=== PATIENT | male | born 1955 | race Caucasian/White ===

== ENCOUNTER 2018-11-24 14:34 | Inpatient (IN) | payer MEDICAID ==
[~2018-11-24] VITALS: Ht 172.7 cm; Wt 72.2 kg
[2018-11-24] MEDS ORDERED: SODIUM CHLORIDE 0.9% 1,000 ML IV ONE (15:11)
[2018-11-24 15:54] LABS: Albumin 3.3 g/dL (3.4-5.0); Calcium 7.8 mg/dL (8.5-10.1); Magnesium 2.4 mg/dL (1.6-2.6); Potassium 3.3 mmol/L (3.5-5.1)
[2018-11-24 16:00] LABS: BUN/Creatinine Ratio 21.8; Bilirubin, Total 0.5 mg/dL (0.2-1.0); Total Protein 6.8 g/dL (6.4-8.2)
[2018-11-24 16:09] LABS: Basophils # (auto) 0 uL; Eosinophils # (auto) 0.1 uL; Monocytes # (auto) 0.2 uL; Nucleated Red Blood Cells % 0.4 %
[2018-11-24 16:14] LABS: INR 1.08 (0.9-1.15); Partial Thromboplastin Time 23.4 sec (23.78-33.04); Prothrombin Time 11.5 sec (9.27-12.13)
[2018-11-24 16:15] LABS: Basophils % (auto) 0.5 % (0.0-2.0); Eosinophils % (auto) 2.4 % (0.0-7.0); Hematocrit 10.6 % (41.0-53.0); Lymphocytes # (auto) 1.5 uL; Mean Corpuscular Hemoglobin 31.3 pg (28.0-32.0); Mean Corpuscular Hgb Conc. 33.1 g/dL (32.0-36.0); Mean Corpuscular Volume 94.6 fL (80.0-100.0); Neutrophils # (auto) 1.2 uL; Neutrophils % (auto) 41.1 % (37.0-80.0); Platelet Count (auto) 89 10^3/uL (140-450); Red Blood Cells 1.12 10^6/uL (4.5-5.90)
[2018-11-24 16:20] LABS: Hemoglobin 3.5 g/dL (13.5-17.5); Red Cell Distribution Width 22.2 % (11.8-14.3)
[2018-11-24 17:38] LABS: Urine Bacteria NONE SEEN /hpf (None Seen); Urine Blood Negative /uL (Negative); Urine Specific Gravity 1.008 (1.001-1.035); Urine WBC <1 /hpf (0 - 3)
[2018-11-24] MEDS ORDERED: cefTRIAXone 1GM/50ML D5W 50 ML IV ONE (18:00)
[2018-11-24 18:05] LABS: Amphetamine Screen, Urine POSITIVE (NEGATIVE); Barbiturate Scree,Urine NEGATIVE (NEGATIVE); Benzodiazephine Screen, Urine NEGATIVE (NEGATIVE); Cannabinoid Screen, Urine NEGATIVE (NEGATIVE); Cocaine Screen, Urine NEGATIVE (NEGATIVE); Opiate Scree,Urine NEGATIVE (NEGATIVE); Phencyclidine Screen, Urine NEGATIVE (NEGATIVE)
[2018-11-24] MEDS ORDERED: LEVOFLOXACIN 500MG 100 ML IV ONE (20:45)
[2018-11-24] MEDS ORDERED: MORPHINE SULF INJ 2 MG/ML SYRINGE 1ML IV PRN (20:45)
[2018-11-24] MEDS ORDERED: NITROGLYCERIN 0.4 MG SL TAB SL PRN (20:45)
[2018-11-24] MEDS ORDERED: DEXTROSE (50%) 50ML SYRG IV PRN (20:45)
[2018-11-24] MEDS ORDERED: ONDANSETRON HCL 4 MG/2 ML VIAL IV PRN (20:45)
[2018-11-24] MEDS: CARVEDILOL 3.125 MG TAB PO SCH (21:18)
[2018-11-24] MEDS ORDERED: POTASSIUM CHL 20 Meq TABLET PO ONE (23:00)
[2018-11-25] MEDS: InsuLIN REG 1unit/0.01ml Soln (100units/ml) SC SCH ×5 (06:00→23:59)
[2018-11-25] MEDS: ACCU-CHEK COMFORT CURVE STRIP VI SCH ×5 (06:28→23:59)
[2018-11-25 08:41] LABS: Basophils # (auto) 0 uL; Eosinophils # (auto) 0.1 uL; Nucleated Red Blood Cells % 0.1 %; White Blood Cell 2.3 10^3/uL (4.4-10.8)
[2018-11-25 08:43] LABS: Basophils % (auto) 0.4 % (0.0-2.0); Eosinophils % (auto) 3.2 % (0.0-7.0); Hematocrit 15.2 % (41.0-53.0); Lymphocytes % (auto) 45.8 % (10.0-50.0); Mean Corpuscular Hemoglobin 31.5 pg (28.0-32.0); Mean Corpuscular Hgb Conc. 34.1 g/dL (32.0-36.0); Mean Corpuscular Volume 92.4 fL (80.0-100.0); Monocytes # (auto) 0.2 uL; Neutrophils % (auto) 43.6 % (37.0-80.0); Platelet Count (auto) 59 10^3/uL (140-450); Red Blood Cells 1.64 10^6/uL (4.5-5.90); Red Cell Distribution Width 17.9 % (11.8-14.3)
[2018-11-25 08:49] LABS: Hemoglobin 5.2 g/dL (13.5-17.5)
[2018-11-25] MEDS ORDERED: IOHEXOL 300 MG/ML 100ML BOTTLE IJ ONE (08:58)
[2018-11-25 09:44] VITALS: BP 155/99
[2018-11-25] MEDS: LISINOPRIL 10 MG TAB PO SCH (09:57)
[2018-11-25] MEDS: CARVEDILOL 3.125 MG TAB PO SCH ×2 (09:57→22:32)
[2018-11-25] MEDS: PANTOPRAZOLE 40 MG TAB PO SCH (09:58)
[2018-11-25] MEDS: LEVOFLOXACIN 500MG 100 ML IV SCH (09:59)
[2018-11-25 10:00] VITALS: BP 154/66
[2018-11-25] MEDS: LORazepam 2MG/ML-1ML VIAL IV PRN ×2 (10:39→20:21)
[2018-11-25 11:12] VITALS: BP 162/92
[2018-11-25 14:31] VITALS: BP 150/99
[2018-11-25] MEDS: methylPREDNISolone SOD SUCC 125 MG/2 ML VL IV SCH ×2 (14:31→22:32)
[2018-11-25 14:41] LABS: BUN/Creatinine Ratio 24.1; Calcium 7.1 mg/dL (8.5-10.1)
[2018-11-25 14:43] LABS: Bilirubin, Total 0.7 mg/dL (0.2-1.0); Total Protein 6.3 g/dL (6.4-8.2)
[2018-11-25 14:47] LABS: Potassium 4.7 mmol/L (3.5-5.1)
[2018-11-25] MEDS ORDERED: ALBUTEROL SULF 2.5 MG/0.5ML(0.5%) NEB SOLN NEB PRN (15:15)
[2018-11-25] MEDS ORDERED: IPRATROPIUM BROM 0.5 MG/2.5ML INH SOL NEB PRN (15:15)
[2018-11-25 15:47] VITALS: BP 150/99
[2018-11-25 16:08] LABS: Hepatitis B Surface Antibody Positive
[2018-11-25 16:47] LABS: Hepatitis A Total Antibody Positive
[2018-11-25 16:58] LABS: Hematocrit 23.4 % (41.0-53.0); Hemoglobin 8.1 g/dL (13.5-17.5)
[2018-11-25 17:11] LABS: Hepatitis B Core Total AB Positive
[2018-11-25 17:12] LABS: Hepatitis B Surface Antigen Positive (Negative)
[2018-11-25 17:14] LABS: Hepatitis C Antibody Positive (Negative)
[2018-11-26] VITALS (7 sets, daily range): BP systolic 112–135; BP diastolic 68–84
[2018-11-26] MEDS: ACCU-CHEK COMFORT CURVE STRIP VI SCH ×4 (05:46→21:46)
[2018-11-26] MEDS: methylPREDNISolone SOD SUCC 125 MG/2 ML VL IV SCH ×3 (05:47→21:41)
[2018-11-26 06:26] LABS: Basophils # (auto) 0 uL; Basophils % (auto) 0.1 % (0.0-2.0); Eosinophils # (auto) 0 uL; Eosinophils % (auto) 0.1 % (0.0-7.0); Hematocrit 26.7 % (41.0-53.0); Hemoglobin 9.5 g/dL (13.5-17.5); Lymphocytes % (auto) 27.2 % (10.0-50.0); Mean Corpuscular Hemoglobin 31.9 pg (28.0-32.0); Mean Corpuscular Hgb Conc. 35.6 g/dL (32.0-36.0); Mean Corpuscular Volume 89.7 fL (80.0-100.0); Monocytes # (auto) 0.1 uL; Monocytes % (auto) 1.6 % (0.0-12.0); Neutrophils # (auto) 2.6 uL; Nucleated Red Blood Cells % 0.1 %; Platelet Count (auto) 80 10^3/uL (140-450); Red Blood Cells 2.98 10^6/uL (4.5-5.90); Red Cell Distribution Width 16.3 % (11.8-14.3); White Blood Cell 3.7 10^3/uL (4.4-10.8)
[2018-11-26] MEDS: InsuLIN REG 1unit/0.01ml Soln (100units/ml) SC SCH ×4 (06:41→21:57)
[2018-11-26 06:42] LABS: Potassium 4.1 mmol/L (3.5-5.1)
[2018-11-26 06:45] LABS: Albumin 3.2 g/dL (3.4-5.0); Calcium 7.7 mg/dL (8.5-10.1); Magnesium 2.4 mg/dL (1.6-2.6)
[2018-11-26 06:48] LABS: BUN/Creatinine Ratio 23.3
[2018-11-26 06:50] LABS: % Iron Saturation 96.7 % (20-55); Cholesterol 87 mg/dL (< 200); Triglycerides 50 mg/dL (< 150)
[2018-11-26 06:51] LABS: Bilirubin, Total 1.7 mg/dL (0.2-1.0); Total Protein 7.1 g/dL (6.4-8.2)
[2018-11-26 06:52] LABS: HDL Cholesterol 37 mg/dL (40-59); LDL Cholesterol 53 mg/dL (< 100)
[2018-11-26 09:16] LABS: Folate (Folic Acid) 6.36 ng/mL (5.38-24)
[2018-11-26] MEDS: NICOTINE 21MG/24 HR TOPICAL PATCH TD SCH (10:14)
[2018-11-26] MEDS: LEVOFLOXACIN 500MG 100 ML IV SCH (10:14)
[2018-11-26] MEDS: ACETAMINOPHEN 325 MG TAB PO PRN (10:15)
[2018-11-26] MEDS: LISINOPRIL 10 MG TAB PO SCH (10:15)
[2018-11-26] MEDS: PANTOPRAZOLE 40 MG TAB PO SCH (10:16)
[2018-11-26] MEDS: CARVEDILOL 3.125 MG TAB PO SCH ×2 (10:16→21:41)
[2018-11-26] MEDS ORDERED: DEXTROSE (50%) 50ML SYRG IV PRN (11:15)
[2018-11-26] MEDS: LORazepam 2MG/ML-1ML VIAL IV PRN (17:30)
[2018-11-26] MEDS ORDERED: chlordiazePOXIDE HCL 25 MG CAP PO PRN (20:45)
[2018-11-26] MEDS: TEMAZEPAM 15 MG CAP PO PRN (21:42)
[2018-11-27 05:15] VITALS: BP 117/69
[2018-11-27] MEDS: methylPREDNISolone SOD SUCC 125 MG/2 ML VL IV SCH ×3 (05:15→21:43)
[2018-11-27] MEDS: LORazepam 2MG/ML-1ML VIAL IV PRN (05:15)
[2018-11-27] MEDS: ACCU-CHEK COMFORT CURVE STRIP VI SCH ×4 (05:45→21:42)
[2018-11-27 06:03] LABS: Basophils # (auto) 0 uL; Basophils % (auto) 0.1 % (0.0-2.0); Eosinophils # (auto) 0 uL; Hematocrit 24.3 % (41.0-53.0); Hemoglobin 8.6 g/dL (13.5-17.5); Lymphocytes # (auto) 1.2 uL; Lymphocytes % (auto) 19.5 % (10.0-50.0); Mean Corpuscular Hemoglobin 31.8 pg (28.0-32.0); Mean Corpuscular Hgb Conc. 35.2 g/dL (32.0-36.0); Mean Corpuscular Volume 90.1 fL (80.0-100.0); Monocytes # (auto) 0.1 uL; Monocytes % (auto) 1.8 % (0.0-12.0); Neutrophils # (auto) 4.7 uL; Neutrophils % (auto) 78.6 % (37.0-80.0); Platelet Count (auto) 79 10^3/uL (140-450); Red Cell Distribution Width 16.6 % (11.8-14.3); White Blood Cell 5.9 10^3/uL (4.4-10.8)
[2018-11-27] MEDS: InsuLIN REG 1unit/0.01ml Soln (100units/ml) SC SCH ×4 (06:54→21:44)
[2018-11-27 09:47] VITALS: BP 97/54
[2018-11-27] MEDS: LISINOPRIL 10 MG TAB PO SCH (10:00)
[2018-11-27] MEDS: CARVEDILOL 3.125 MG TAB PO SCH ×2 (10:00→21:43)
[2018-11-27] MEDS: LEVOFLOXACIN 500MG 100 ML IV SCH (11:36)
[2018-11-27] MEDS: PANTOPRAZOLE 40 MG TAB PO SCH (11:37)
[2018-11-27] MEDS: NICOTINE 21MG/24 HR TOPICAL PATCH TD SCH (11:38)
[2018-11-27 13:00] VITALS: BP 130/83
[2018-11-27 14:16] LABS: Potassium 4.2 mmol/L (3.5-5.1)
[2018-11-27 14:19] LABS: Albumin 2.9 g/dL (3.4-5.0); Calcium 7.6 mg/dL (8.5-10.1)
[2018-11-27 14:24] LABS: BUN/Creatinine Ratio 29.5; Bilirubin, Total 0.5 mg/dL (0.2-1.0); Total Protein 6.5 g/dL (6.4-8.2)
[2018-11-27 17:00] VITALS: BP 103/73
[2018-11-27] MEDS: MAGNESIUM SULFATE 1GM/100ML 100 ML IV SCH ×2 (17:00→18:09)
[2018-11-27] MEDS: TEMAZEPAM 15 MG CAP PO PRN (21:43)
[2018-11-27 22:00] VITALS: BP 127/88
[2018-11-28 05:48] VITALS: BP 117/81
[2018-11-28] MEDS: methylPREDNISolone SOD SUCC 125 MG/2 ML VL IV SCH ×3 (06:12→21:55)
[2018-11-28] MEDS: InsuLIN REG 1unit/0.01ml Soln (100units/ml) SC SCH ×4 (06:12→22:16)
[2018-11-28] MEDS: ACCU-CHEK COMFORT CURVE STRIP VI SCH ×4 (06:12→21:56)
[2018-11-28] MEDS: LEVOFLOXACIN 500MG 100 ML IV SCH (09:10)
[2018-11-28] MEDS: PANTOPRAZOLE 40 MG TAB PO SCH (09:11)
[2018-11-28] MEDS: CARVEDILOL 3.125 MG TAB PO SCH ×2 (09:11→21:56)
[2018-11-28] MEDS: LISINOPRIL 10 MG TAB PO SCH (09:12)
[2018-11-28] MEDS: NICOTINE 21MG/24 HR TOPICAL PATCH TD SCH ×2 (09:16→09:17)
[2018-11-28] MEDS: ACETAMINOPHEN 325 MG TAB PO PRN (14:17)
[2018-11-28 16:39] VITALS: BP 117/81
[2018-11-28 17:00] VITALS: BP 126/79
[2018-11-28 21:30] VITALS: BP 129/66
[2018-11-28] MEDS: TEMAZEPAM 15 MG CAP PO PRN (21:57)
[2018-11-29 05:00] VITALS: BP 121/68
[2018-11-29] MEDS: ACCU-CHEK COMFORT CURVE STRIP VI SCH ×2 (05:56→11:00)
[2018-11-29] MEDS: methylPREDNISolone SOD SUCC 125 MG/2 ML VL IV SCH ×2 (05:56→14:52)
[2018-11-29] MEDS: InsuLIN REG 1unit/0.01ml Soln (100units/ml) SC SCH ×2 (05:57→11:00)
[2018-11-29 06:09] LABS: Basophils # (auto) 0 uL; Basophils % (auto) 0.1 % (0.0-2.0); Eosinophils # (auto) 0 uL; Hematocrit 23.8 % (41.0-53.0); Hemoglobin 8.3 g/dL (13.5-17.5); Lymphocytes # (auto) 1.1 uL; Lymphocytes % (auto) 19.2 % (10.0-50.0); Mean Corpuscular Hemoglobin 31.6 pg (28.0-32.0); Mean Corpuscular Hgb Conc. 34.7 g/dL (32.0-36.0); Mean Corpuscular Volume 91.2 fL (80.0-100.0); Monocytes # (auto) 0.2 uL; Monocytes % (auto) 2.7 % (0.0-12.0); Neutrophils # (auto) 4.5 uL; Platelet Count (auto) 81 10^3/uL (140-450); Red Blood Cells 2.61 10^6/uL (4.5-5.90); Red Cell Distribution Width 16.7 % (11.8-14.3); White Blood Cell 5.8 10^3/uL (4.4-10.8)
[2018-11-29 06:25] LABS: Albumin 2.9 g/dL (3.4-5.0); Calcium 7.7 mg/dL (8.5-10.1); Potassium 4.6 mmol/L (3.5-5.1)
[2018-11-29 06:28] LABS: BUN/Creatinine Ratio 19.7
[2018-11-29 06:31] LABS: Bilirubin, Total 0.4 mg/dL (0.2-1.0); Total Protein 6.3 g/dL (6.4-8.2)
[2018-11-29 08:28] VITALS: BP 122/76
[2018-11-29] MEDS: LEVOFLOXACIN 500MG 100 ML IV SCH (09:02)
[2018-11-29] MEDS: CARVEDILOL 3.125 MG TAB PO SCH (09:03)
[2018-11-29] MEDS: PANTOPRAZOLE 40 MG TAB PO SCH (09:03)
[2018-11-29] MEDS: LISINOPRIL 10 MG TAB PO SCH (09:03)
[2018-11-29] MEDS: NICOTINE 21MG/24 HR TOPICAL PATCH TD SCH (09:05)
[2018-11-29] MEDS: LORazepam 2MG/ML-1ML VIAL IV PRN (10:29)
[2018-11-29] MEDS ORDERED: DEXAMETHASONE IV SCH (13:00)
[2018-11-29] MEDS ORDERED: SODIUM CHL 0.9% IV SCH ×2 (13:00→14:00)
[2018-11-29] MEDS ORDERED: ONDANSETRON HCL 16 MG in SODIUM CHL 0.9% 50 ML IV SCH (13:00)
[2018-11-29] MEDS ORDERED: BENDAMUSTINE HCL IV SCH (14:00)
== END 2018-11-29 18:09 | disposition left against medical advice (07) | DRG 660 ==
LOC: ER 14:42 → TELE 20:42 → TELE-WESTW 11-25 23:46
PROVIDERS: ADMIT Nurse Practitioner; ATTEND Internal Medicine
PROC: 30233N1 Transfusion of Nonautologous Red Blood Cells into Peripheral Vein, Percutaneous Approach (ICD-10-PCS; principal; 2018-11-24)
DX: D61.818 Other pancytopenia (principal); I21.A1 Myocardial infarction type 2; J96.00 Acute respiratory failure, unspecified whether with hypoxia or hypercapnia; J69.0 Pneumonitis due to inhalation of food and vomit; E44.1 Mild protein-calorie malnutrition; I27.20 Pulmonary hypertension, unspecified; C91.10 Chronic lymphocytic leukemia of B-cell type not having achieved remission; K70.9 Alcoholic liver disease, unspecified; I42.0 Dilated cardiomyopathy; I11.0 Hypertensive heart disease with heart failure; I50.9 Heart failure, unspecified; J44.0 Chronic obstructive pulmonary disease with (acute) lower respiratory infection; E87.6 Hypokalemia; J44.1 Chronic obstructive pulmonary disease with (acute) exacerbation; R00.0 Tachycardia, unspecified; E11.9 Type 2 diabetes mellitus without complications; B18.1 Chronic viral hepatitis B without delta-agent; B18.2 Chronic viral hepatitis C; F17.210 Nicotine dependence, cigarettes, uncomplicated; F15.10 Other stimulant abuse, uncomplicated; F12.90 Cannabis use, unspecified, uncomplicated; K57.30 Diverticulosis of large intestine without perforation or abscess without bleeding; R00.1 Bradycardia, unspecified; Z91.19 Patient's noncompliance with other medical treatment and regimen; Z68.24 Body mass index [BMI] 24.0-24.9, adult; Z92.21 Personal history of antineoplastic chemotherapy
CPT/HCPCS: 36415; 36430; 71046; 71260; 74177; 80053; 80061; 80307; 81001; 82607; 82728; 82746; 82962; 83010; 83036; 83540; 83550; 83615; 83735; 83880; 84443; 84484; 85014; 85018; 85025; 85045; 85379; 85610; 85730; 86704; 86706; 86708; 86803; 86850; 86870; 86880; 86900; 86901; 86902; 86922; 87040; 87340; 93005; 93306; 96365; 96367; 99291; A6257; G0378; J0696; J1100; J1815; J1956; J2405; J9034

== ENCOUNTER 2019-04-16 16:38 | Emergency (ER) | payer MEDICAID ==
[~2019-04-16] VITALS: Ht 167.6 cm; Wt 68.0 kg
[~2019-04-16 16:38] MED LIST: MAGN400T21 PO; MET25T PO; PANT40TA2 PO; PRE1T PO
[2019-04-16 16:53] VITALS: BP 160/89
[2019-04-16] MEDS ORDERED: cefTRIAXone 1GM/50ML D5W 50 ML IV ONE (18:15)
== END 2019-04-16 18:56 | disposition home or self-care (01) ==
LOC: ER 16:48
DX: L02.512 Cutaneous abscess of left hand (principal); M86.9 Osteomyelitis, unspecified; J44.9 Chronic obstructive pulmonary disease, unspecified; I10 Essential (primary) hypertension; F17.210 Nicotine dependence, cigarettes, uncomplicated; F12.90 Cannabis use, unspecified, uncomplicated; F15.90 Other stimulant use, unspecified, uncomplicated; Z79.899 Other long term (current) drug therapy
CPT/HCPCS: 26010; 73140; 96365; 99283; J0696

== ENCOUNTER 2019-04-18 13:23 | Emergency (ER) | payer MEDICAID ==
[~2019-04-18] VITALS: Ht 170.2 cm; Wt 65.8 kg
[2019-04-18 14:00] VITALS: BP 102/75
[2019-04-18] MEDS ORDERED: NEOMYCIN-BACITRACIN-POLYM UNITDOSE PKG TOP OINT TOP ONE ×2 (16:06→16:15)
[2019-04-18] MEDS ORDERED: BACITRACIN INJ 50000 UNIT VIAL TOP ONE (16:15)
== END 2019-04-18 16:09 | disposition home or self-care (01) ==
LOC: ER 13:28
DX: L03.012 Cellulitis of left finger (principal); J44.9 Chronic obstructive pulmonary disease, unspecified; I10 Essential (primary) hypertension; F17.210 Nicotine dependence, cigarettes, uncomplicated; F12.90 Cannabis use, unspecified, uncomplicated; F15.90 Other stimulant use, unspecified, uncomplicated; Z79.899 Other long term (current) drug therapy

== ENCOUNTER 2021-01-02 05:59 | Inpatient (IN) | payer MEDICARE ==
[~2021-01-02] VITALS: Ht 170.2 cm; Wt 67.1 kg
[~2021-01-02 05:59] MED LIST changes: +ENAL5TAB10 PO; -MAGN400T21 PO; -PANT40TA2 PO; -PRE1T PO
[2021-01-02 06:40] LABS: Hemoglobin 7.6 g/dL (13.5-17.5); White Blood Cell 6.5 10^3/uL (4.4-10.8)
[2021-01-02 06:43] LABS: Hematocrit 22.5 % (41.0-53.0); Mean Corpuscular Hemoglobin 30.1 pg (28.0-32.0); Mean Corpuscular Hgb Conc. 33.8 g/dL (32.0-36.0); Mean Corpuscular Volume 88.8 fL (80.0-100.0); Red Blood Cells 2.53 10^6/uL (4.5-5.90)
[2021-01-02 06:48] LABS: Red Cell Distribution Width 20.5 % (11.8-14.3)
[2021-01-02 06:49] LABS: Basophils % (manual) 0 (0.0-2.0); Blast Cells 0; Metamyelocytes % 0; Monocytes % (manual) 0 (0-12); Promyelocytes % 0; Reactive Lymphocytes 0
[2021-01-02 06:51] LABS: INR 1.04 (0.9-1.15); Partial Thromboplastin Time 24.3 sec (23.0-31.2)
[2021-01-02 06:55] LABS: BUN/Creatinine Ratio 12.6; Calcium 8.4 mg/dL (8.5-10.1)
[2021-01-02 06:59] LABS: Bilirubin, Total 0.9 mg/dL (0.2-1.0); Total Protein 6.8 g/dL (6.4-8.2)
[2021-01-02] MEDS ORDERED: SODIUM CHLORIDE 0.9% 1,000 ML IV ONE (07:15)
[2021-01-02 07:44] LABS: Band Neutrophils % (manual) 2; Eosinophils % (manual) 3 (0-7); Lymphocytes % (manual) 57 (10.0-50.0); Myelocytes % 3
[2021-01-02 08:27] LABS: Urine Bacteria FEW /hpf (None Seen); Urine Blood Negative /uL (Negative); Urine Specific Gravity 1.006 (1.001-1.035); Urine WBC 3 /hpf (0 - 3)
[2021-01-02 08:40] LABS: Amphetamine Screen, Urine POSITIVE (NEGATIVE); Barbiturate Scree,Urine NEGATIVE (NEGATIVE); Benzodiazephine Screen, Urine NEGATIVE (NEGATIVE); Cannabinoid Screen, Urine NEGATIVE (NEGATIVE); Cocaine Screen, Urine NEGATIVE (NEGATIVE); Opiate Scree,Urine NEGATIVE (NEGATIVE)
[2021-01-02 08:47] LABS: Phencyclidine Screen, Urine NEGATIVE (NEGATIVE)
[2021-01-02] MEDS ORDERED: SPIRONOLACTONE 25 MG TAB PO ONE (09:45)
[2021-01-02] MEDS ORDERED: FUROSEMIDE 40 MG/4 ML VIAL IV ONE (09:45)
[2021-01-02] MEDS ORDERED: POTASSIUM CHL 10 Meq TABLET PO ONE (11:00)
[2021-01-02] MEDS ORDERED: ONDANSETRON HCL 4 MG/2 ML VIAL IV PRN (11:00)
[2021-01-02] MEDS ORDERED: HYDROcodone-ACET 5/325MG TAB PO PRN (11:00)
[2021-01-02] MEDS ORDERED: ACETAMINOPHEN 500 MG TAB PO PRN (11:00)
[2021-01-02] MEDS ORDERED: NITROGLYCERIN 0.4 MG SL TAB SL PRN (11:00)
[2021-01-02] MEDS ORDERED: MORPHINE SULFATE INJECTION 2 MG/ML SYRG IV PRN (11:00)
[2021-01-02 14:24] VITALS: BP 144/75
[2021-01-02 14:27] VITALS: BP 144/75
[2021-01-02 16:55] VITALS: BP 146/91
[2021-01-02] MEDS: RAMIPRIL 2.5 MG CAP PO SCH (17:34)
[2021-01-02] MEDS: FUROSEMIDE 20 MG TAB PO SCH (17:34)
[2021-01-02] MEDS: MORPHINE SULFATE INJECTION 2 MG/ML SYRG IV PRN (19:41)
[2021-01-02] MEDS: CARVEDILOL 3.125 MG TAB PO SCH (22:00)
[2021-01-02] MEDS: ALPRAZolam 0.25 MG TAB PO PRN (22:10)
[2021-01-02 22:12] VITALS: BP 136/88
[2021-01-03] MEDS ORDERED: TEMAZEPAM 15 MG CAP PO ONE ×2 (00:30→22:00)
[2021-01-03 05:09] VITALS: BP 126/78
[2021-01-03] MEDS: FUROSEMIDE 20 MG TAB PO SCH ×2 (06:24→17:54)
[2021-01-03] MEDS: RAMIPRIL 2.5 MG CAP PO SCH (08:35)
[2021-01-03] MEDS: CARVEDILOL 3.125 MG TAB PO SCH ×2 (08:36→22:00)
[2021-01-03] MEDS: MORPHINE SULFATE INJECTION 2 MG/ML SYRG IV PRN ×3 (08:37→17:55)
[2021-01-03] MEDS: NICOTINE 21MG/24 HR TOPICAL PATCH TD SCH (08:37)
[2021-01-03 09:00] VITALS: BP 118/76
[2021-01-03 12:59] VITALS: BP 120/73
[2021-01-03 17:00] VITALS: BP 112/60
[2021-01-03 22:27] VITALS: BP 113/68
[2021-01-04 05:11] VITALS: BP 124/79
[2021-01-04] MEDS: FUROSEMIDE 40 MG/4 ML VIAL IV SCH ×2 (05:43→17:55)
[2021-01-04 06:09] LABS: Basophils # (auto) 0 10 ^3/uL (0-0.2); Basophils % (auto) 0.2 % (0.0-2.0); Eosinophils # (auto) 0.2 10 ^3/uL (0-0.8); Eosinophils % (auto) 2.7 % (0.0-7.0); Hemoglobin 8.5 g/dL (13.5-17.5); Lymphocytes # (auto) 3.2 10 ^3/uL (0.4-5.4); Lymphocytes % (auto) 54.5 % (10.0-50.0); Mean Corpuscular Hemoglobin 30.3 pg (28.0-32.0); Mean Corpuscular Hgb Conc. 34.1 g/dL (32.0-36.0); Mean Corpuscular Volume 88.8 fL (80.0-100.0); Monocytes # (auto) 0.2 10 ^3/uL (0-1.3); Monocytes % (auto) 2.6 % (0.0-12.0); Neutrophils # (auto) 2.3 10 ^3/uL (1.6-8.6); Nucleated Red Blood Cells % 1.3 %; Red Blood Cells 2.81 10^6/uL (4.5-5.90); White Blood Cell 5.8 10^3/uL (4.4-10.8)
[2021-01-04 06:20] LABS: Albumin 2.8 g/dL (3.4-5.0); Potassium 4.2 mmol/L (3.5-5.1)
[2021-01-04 06:24] LABS: Total Protein 6.7 g/dL (6.4-8.2)
[2021-01-04 06:28] LABS: Ferritin 964.3 ng/mL (10-322); Folate (Folic Acid) 6.4 ng/mL (5.38-24)
[2021-01-04 06:29] LABS: % Iron Saturation 72.9 % (20-55)
[2021-01-04] MEDS: MORPHINE SULFATE INJECTION 2 MG/ML SYRG IV PRN ×3 (07:40→18:05)
[2021-01-04] MEDS: NICOTINE 21MG/24 HR TOPICAL PATCH TD SCH (09:44)
[2021-01-04] MEDS: CARVEDILOL 3.125 MG TAB PO SCH ×2 (09:44→22:00)
[2021-01-04] MEDS ORDERED: ERGOCALCIFEROL 50,000 UNIT(1.25MG) CAP PO SCH (10:00)
[2021-01-04 13:00] VITALS: BP 123/67
[2021-01-04 17:00] VITALS: BP 133/83
[2021-01-04] MEDS ORDERED: TEMAZEPAM 15 MG CAP PO ONE (22:00)
[2021-01-04 22:04] VITALS: BP 103/53
[2021-01-05 05:25] VITALS: BP 99/71
[2021-01-05] MEDS: FUROSEMIDE 40 MG/4 ML VIAL IV SCH ×2 (06:00→18:34)
[2021-01-05] MEDS: MORPHINE SULFATE INJECTION 2 MG/ML SYRG IV PRN ×3 (06:50→21:32)
[2021-01-05] MEDS ORDERED: IOHEXOL 300 MG/ML 100ML BOTTLE IJ ONE (07:19)
[2021-01-05 07:48] LABS: Hematocrit 23.8 % (41.0-53.0); Hemoglobin 8.3 g/dL (13.5-17.5); Mean Corpuscular Hemoglobin 30.8 pg (28.0-32.0); Mean Corpuscular Hgb Conc. 34.6 g/dL (32.0-36.0); Mean Corpuscular Volume 88.9 fL (80.0-100.0); Red Blood Cells 2.68 10^6/uL (4.5-5.90); White Blood Cell 6.7 10^3/uL (4.4-10.8)
[2021-01-05 07:57] LABS: Basophils % (manual) 0 (0.0-2.0); Blast Cells 0; Metamyelocytes % 0; Promyelocytes % 0; Reactive Lymphocytes 0; Red Cell Distribution Width 21.5 % (11.8-14.3)
[2021-01-05 08:04] LABS: Potassium 4.2 mmol/L (3.5-5.1)
[2021-01-05 08:15] LABS: BUN/Creatinine Ratio 26.5; Calcium 8.1 mg/dL (8.5-10.1)
[2021-01-05 08:30] LABS: Band Neutrophils % (manual) 4; Eosinophils % (manual) 2 (0-7); Lymphocytes % (manual) 68 (10.0-50.0); Monocytes % (manual) 2 (0-12); Myelocytes % 1
[2021-01-05 08:55] VITALS: BP 91/61
[2021-01-05] MEDS: ALPRAZolam 0.25 MG TAB PO PRN ×2 (10:24→23:31)
[2021-01-05] MEDS: CARVEDILOL 3.125 MG TAB PO SCH ×2 (10:25→21:42)
[2021-01-05 12:39] VITALS: BP 101/62
[2021-01-05] MEDS ORDERED: ERGOCALCIFEROL 50,000 UNIT(1.25MG) CAP PO SCH (16:30)
[2021-01-05 16:44] VITALS: BP 98/69
[2021-01-05 22:23] VITALS: BP 97/64
[2021-01-06] MEDS: MORPHINE SULFATE INJECTION 2 MG/ML SYRG IV PRN ×2 (04:42→15:10)
[2021-01-06 05:10] VITALS: BP 111/64
[2021-01-06] MEDS: FUROSEMIDE 40 MG/4 ML VIAL IV SCH (06:34)
[2021-01-06 06:56] LABS: Hemoglobin 8.3 g/dL (13.5-17.5)
[2021-01-06 06:58] LABS: Hematocrit 23.8 % (41.0-53.0); Mean Corpuscular Hemoglobin 31.5 pg (28.0-32.0); Mean Corpuscular Hgb Conc. 34.7 g/dL (32.0-36.0); Mean Corpuscular Volume 90.8 fL (80.0-100.0); Red Blood Cells 2.62 10^6/uL (4.5-5.90); White Blood Cell 8.2 10^3/uL (4.4-10.8)
[2021-01-06 07:06] LABS: Red Cell Distribution Width 20.2 % (11.8-14.3)
[2021-01-06 07:07] LABS: Basophils % (manual) 0 (0.0-2.0); Blast Cells 0; Eosinophils % (manual) 0 (0-7); Promyelocytes % 0; Reactive Lymphocytes 0
[2021-01-06 07:15] LABS: Calcium 8.3 mg/dL (8.5-10.1); Potassium 4.2 mmol/L (3.5-5.1)
[2021-01-06 07:17] LABS: BUN/Creatinine Ratio 21.4
[2021-01-06 07:50] LABS: Band Neutrophils % (manual) 3; Lymphocytes % (manual) 60 (10.0-50.0); Metamyelocytes % 1; Monocytes % (manual) 2 (0-12); Myelocytes % 1
[2021-01-06 09:00] VITALS: BP 119/78
[2021-01-06] MEDS ORDERED: SACUBITRIL-VALSARTAN 24mg/26mg TAB PO SCH (10:00)
[2021-01-06] MEDS: CARVEDILOL 3.125 MG TAB PO SCH (10:23)
[2021-01-06] MEDS ORDERED: POTA10TA32 PO (11:41)
[2021-01-06] MEDS ORDERED: CAR3125T PO (11:41)
[2021-01-06] MEDS ORDERED: ERGO1CAP23 PO (11:41)
[2021-01-06] MEDS ORDERED: FURO1TAB31 PO (11:41)
[2021-01-06] MEDS ORDERED: SACU1TAB PO (11:41)
[2021-01-06 13:00] VITALS: BP 99/59
[2021-01-06 13:37] VITALS: BP 144/100
[2021-01-06 17:00] VITALS: BP 98/64
== END 2021-01-06 16:45 | disposition home or self-care (01) | DRG 292 ==
LOC: ER 05:59 → TELE-WESTW 10:49 → ER 11:01 → TELE-WESTW 13:29
PROVIDERS: ADMIT Nurse Practitioner Acute Care; ATTEND Internal Medicine
DX: I11.0 Hypertensive heart disease with heart failure (principal); C91.10 Chronic lymphocytic leukemia of B-cell type not having achieved remission; D61.818 Other pancytopenia; E44.1 Mild protein-calorie malnutrition; I50.23 Acute on chronic systolic (congestive) heart failure; I27.20 Pulmonary hypertension, unspecified; F10.10 Alcohol abuse, uncomplicated; F15.10 Other stimulant abuse, uncomplicated; R74.8 Abnormal levels of other serum enzymes; D63.8 Anemia in other chronic diseases classified elsewhere; Z68.22 Body mass index [BMI] 22.0-22.9, adult; Z20.822 Contact with and (suspected) exposure to COVID-19; E11.9 Type 2 diabetes mellitus without complications; R59.1 Generalized enlarged lymph nodes; R09.89 Other specified symptoms and signs involving the circulatory and respiratory systems; Y90.4 Blood alcohol level of 80-99 mg/100 ml; F17.210 Nicotine dependence, cigarettes, uncomplicated; I27.21 Secondary pulmonary arterial hypertension; J43.9 Emphysema, unspecified; Z80.0 Family history of malignant neoplasm of digestive organs; Z91.14 Patient's other noncompliance with medication regimen; F41.9 Anxiety disorder, unspecified; Z86.19 Personal history of other infectious and parasitic diseases; Z71.6 Tobacco abuse counseling
CPT/HCPCS: 36415; 70490; 70491; 71045; 71260; 74177; 80048; 80053; 80307; 81001; 82270; 82306; 82607; 82728; 82746; 83036; 83540; 83550; 83615; 83735; 83880; 84443; 84484; 85007; 85025; 85027; 85045; 85610; 85730; 87426; 92610; 93005; 96361; 96374; G0378

== ENCOUNTER 2021-01-15 16:51 | Inpatient (IN) | payer MEDICARE, OTHER ==
[~2021-01-15] VITALS: Ht 170.2 cm; Wt 70.0 kg
[~2021-01-15 16:51] MED LIST changes: +CAR3125T PO; -ENAL5TAB10 PO; +ERGO1CAP23 PO; +FURO1TAB31 PO; -MET25T PO; +POTA10TA32 PO; +SACU1TAB PO
[2021-01-15] MEDS ORDERED: dilTIAZem 25 MG/5 ML VIAL IV ONE (17:15)
[2021-01-15 18:37] LABS: Albumin 3.3 g/dL (3.4-5.0); Calcium 8.2 mg/dL (8.5-10.1); Magnesium 1.9 mg/dL (1.6-2.6); Potassium 3.9 mmol/L (3.5-5.1)
[2021-01-15 18:41] LABS: Hematocrit 21.5 % (41.0-53.0); Mean Corpuscular Hemoglobin 40.9 pg (28.0-32.0); Mean Corpuscular Hgb Conc. 37.3 g/dL (32.0-36.0); Mean Corpuscular Volume 109.6 fL (80.0-100.0); Platelet Count (auto) 97 10^3/uL (140-450); Red Blood Cells 1.96 10^6/uL (4.5-5.90); White Blood Cell 9.8 10^3/uL (4.4-10.8)
[2021-01-15 18:42] LABS: Bilirubin, Total 1.3 mg/dL (0.2-1.0); Total Protein 7.8 g/dL (6.4-8.2)
[2021-01-15 18:52] LABS: Red Cell Distribution Width 26.7 % (11.8-14.3)
[2021-01-15 18:58] LABS: Basophils % (manual) 0 (0.0-2.0); Blast Cells 0; Eosinophils % (manual) 0 (0-7); Myelocytes % 0; Promyelocytes % 0; Reactive Lymphocytes 0
[2021-01-15] MEDS ORDERED: dilTIAZem 125mg/125ml BAG KIT 125 ML IV SCH (19:30)
[2021-01-15] MEDS ORDERED: ACETAMINOPHEN 500 MG TAB PO PRN (19:30)
[2021-01-15] MEDS ORDERED: MORPHINE SULF INJ 2 MG/ML SYRINGE 1ML IV PRN (19:30)
[2021-01-15] MEDS ORDERED: HYDROcodone-ACET 5/325MG TAB PO PRN (19:30)
[2021-01-15] MEDS ORDERED: METOPROLOL TARTRATE 1MG/1ML-5ML VIAL IV ONE (19:30)
[2021-01-15] MEDS ORDERED: NITROGLYCERIN 0.4 MG SL TAB SL PRN (19:30)
[2021-01-15] MEDS ORDERED: ALPRAZolam 0.25 MG TAB PO PRN (19:30)
[2021-01-15 19:46] LABS: Band Neutrophils % (manual) 4; Lymphocytes % (manual) 70 (10.0-50.0); Metamyelocytes % 1; Monocytes % (manual) 2 (0-12)
[2021-01-15] MEDS: FUROSEMIDE 20 MG/2 ML VIAL IV SCH (20:00)
[2021-01-15] MEDS: ONDANSETRON HCL 4 MG/2 ML VIAL IV PRN (20:35)
[2021-01-15] MEDS: MORPHINE SULF INJ 2 MG/ML SYRINGE 1ML IV PRN (20:35)
[2021-01-15] MEDS: CARVEDILOL 3.125 MG TAB PO SCH (21:46)
[2021-01-15] MEDS: ATORVASTATIN 20 MG TAB PO SCH (21:49)
[2021-01-15 22:33] LABS: Alcohol, Urine < 3.0 mg/dL (0-10); Amphetamine Screen, Urine POSITIVE (NEGATIVE); Barbiturate Scree,Urine NEGATIVE (NEGATIVE); Benzodiazephine Screen, Urine NEGATIVE (NEGATIVE); Cannabinoid Screen, Urine NEGATIVE (NEGATIVE); Cocaine Screen, Urine NEGATIVE (NEGATIVE); Opiate Scree,Urine NEGATIVE (NEGATIVE); Phencyclidine Screen, Urine NEGATIVE (NEGATIVE)
[2021-01-16] VITALS (9 sets, daily range): BP systolic 105–126; BP diastolic 67–86
[2021-01-16] MEDS: guaiFENesin-DM 100/10mg/5ml SYR PO PRN (01:39)
[2021-01-16 03:43] LABS: Hematocrit 20.2 % (41.0-53.0); Mean Corpuscular Hemoglobin 32.6 pg (28.0-32.0); Mean Corpuscular Hgb Conc. 33.4 g/dL (32.0-36.0); Mean Corpuscular Volume 97.4 fL (80.0-100.0); Platelet Count (auto) 79 10^3/uL (140-450); Red Blood Cells 2.07 10^6/uL (4.5-5.90)
[2021-01-16 03:45] LABS: Red Cell Distribution Width 25.5 % (11.8-14.3)
[2021-01-16 03:46] LABS: Hemoglobin 6.7 g/dL (13.5-17.5)
[2021-01-16 03:47] LABS: Basophils % (manual) 0 (0.0-2.0); Blast Cells 0; Eosinophils % (manual) 0 (0-7); Promyelocytes % 0
[2021-01-16 03:59] LABS: BUN/Creatinine Ratio 17.3; Calcium 7.3 mg/dL (8.5-10.1); Potassium 4.2 mmol/L (3.5-5.1)
[2021-01-16 05:13] LABS: Band Neutrophils % (manual) 5; Metamyelocytes % 3; Monocytes % (manual) 6 (0-12); Myelocytes % 1; Reactive Lymphocytes 1
[2021-01-16 05:15] LABS: Lymphocytes % (manual) 64 (10.0-50.0)
[2021-01-16] MEDS ORDERED: ASPirin-EC 81 mg tab PO SCH (10:00)
[2021-01-16] MEDS: FAMOTIDINE 20 MG TAB PO SCH (10:16)
[2021-01-16] MEDS: RAMIPRIL 10 MG CAP PO SCH (10:17)
[2021-01-16] MEDS: CARVEDILOL 3.125 MG TAB PO SCH ×2 (10:18→21:52)
[2021-01-16] MEDS: FUROSEMIDE 20 MG/2 ML VIAL IV SCH (11:13)
[2021-01-16] MEDS: ONDANSETRON HCL 4 MG/2 ML VIAL IV PRN (11:15)
[2021-01-16] MEDS: MORPHINE SULF INJ 2 MG/ML SYRINGE 1ML IV PRN ×2 (11:15→20:18)
[2021-01-16 15:59] LABS: % Iron Saturation 94.7 % (20-55)
[2021-01-16 16:07] LABS: Ferritin > 1650.0 ng/mL (10-322)
[2021-01-16 16:08] LABS: Folate (Folic Acid) 5.76 ng/mL (5.38-24)
[2021-01-16 16:38] LABS: Hematocrit 23.2 % (41.0-53.0); Hemoglobin 8.4 g/dL (13.5-17.5)
[2021-01-16] MEDS: ATORVASTATIN 20 MG TAB PO SCH (21:52)
[2021-01-17] VITALS (9 sets, daily range): BP systolic 96–122; BP diastolic 48–78
[2021-01-17] MEDS: MORPHINE SULF INJ 2 MG/ML SYRINGE 1ML IV PRN ×3 (04:15→21:09)
[2021-01-17 05:56] LABS: Hemoglobin 9.3 g/dL (13.5-17.5); Mean Corpuscular Hemoglobin 33.6 pg (28.0-32.0); Mean Corpuscular Hgb Conc. 35.7 g/dL (32.0-36.0); Mean Corpuscular Volume 94.1 fL (80.0-100.0); Platelet Count (auto) 74 10^3/uL (140-450); Red Blood Cells 2.76 10^6/uL (4.5-5.90); White Blood Cell 8.9 10^3/uL (4.4-10.8)
[2021-01-17 06:01] LABS: Basophils % (manual) 0 (0.0-2.0); Blast Cells 0; Metamyelocytes % 0; Myelocytes % 0; Promyelocytes % 0; Reactive Lymphocytes 0; Red Cell Distribution Width 21.2 % (11.8-14.3)
[2021-01-17 06:15] LABS: Albumin 2.8 g/dL (3.4-5.0); Calcium 7.7 mg/dL (8.5-10.1); Potassium 4.3 mmol/L (3.5-5.1)
[2021-01-17 06:19] LABS: BUN/Creatinine Ratio 21.1; Bilirubin, Total 1.4 mg/dL (0.2-1.0); Total Protein 6.4 g/dL (6.4-8.2)
[2021-01-17 07:59] LABS: Band Neutrophils % (manual) 2; Eosinophils % (manual) 1 (0-7); Lymphocytes % (manual) 74 (10.0-50.0); Monocytes % (manual) 1 (0-12)
[2021-01-17] MEDS: FUROSEMIDE 20 MG/2 ML VIAL IV SCH (11:08)
[2021-01-17] MEDS: CARVEDILOL 3.125 MG TAB PO SCH ×2 (11:09→22:31)
[2021-01-17] MEDS: FAMOTIDINE 20 MG TAB PO SCH (11:09)
[2021-01-17] MEDS: RAMIPRIL 10 MG CAP PO SCH (11:09)
[2021-01-17] MEDS: guaiFENesin-DM 100/10mg/5ml SYR PO PRN (21:09)
[2021-01-17] MEDS: ATORVASTATIN 20 MG TAB PO SCH (22:31)
[2021-01-18 05:00] VITALS: BP 130/81
[2021-01-18 06:16] LABS: Potassium 4.3 mmol/L (3.5-5.1)
[2021-01-18 06:24] LABS: Albumin 2.7 g/dL (3.4-5.0); Bilirubin, Total 1.3 mg/dL (0.2-1.0); Calcium 7.9 mg/dL (8.5-10.1); Total Protein 6.4 g/dL (6.4-8.2)
[2021-01-18 06:32] LABS: Hematocrit 28.3 % (41.0-53.0); Hemoglobin 9.5 g/dL (13.5-17.5); Mean Corpuscular Hemoglobin 30.1 pg (28.0-32.0); Mean Corpuscular Hgb Conc. 33.7 g/dL (32.0-36.0); Mean Corpuscular Volume 89.4 fL (80.0-100.0); Platelet Count (auto) 74 10^3/uL (140-450); Red Blood Cells 3.16 10^6/uL (4.5-5.90); White Blood Cell 9.4 10^3/uL (4.4-10.8)
[2021-01-18] MEDS: MORPHINE SULF INJ 2 MG/ML SYRINGE 1ML IV PRN (06:43)
[2021-01-18 06:51] LABS: Red Cell Distribution Width 20.4 % (11.8-14.3)
[2021-01-18 06:52] LABS: Basophils % (manual) 0 (0.0-2.0); Blast Cells 0; Eosinophils % (manual) 0 (0-7); Myelocytes % 0; Promyelocytes % 0; Reactive Lymphocytes 0
[2021-01-18 07:34] LABS: Band Neutrophils % (manual) 4; Lymphocytes % (manual) 76 (10.0-50.0); Metamyelocytes % 1; Monocytes % (manual) 1 (0-12)
[2021-01-18] MEDS ORDERED: CARVEDILOL 3.125 MG TAB PO SCH ×2 (08:43→08:45)
[2021-01-18] MEDS ORDERED: DIGOXIN 0.25 MG TAB PO ONE (08:45)
[2021-01-18 09:00] VITALS: BP 133/85
[2021-01-18] MEDS: FAMOTIDINE 20 MG TAB PO SCH (09:43)
[2021-01-18] MEDS: RAMIPRIL 10 MG CAP PO SCH (09:43)
[2021-01-18] MEDS: FUROSEMIDE 20 MG/2 ML VIAL IV SCH (09:43)
[2021-01-18 13:00] VITALS: BP 104/65
[2021-01-18 14:27] VITALS: BP 133/85
[2021-01-19] MEDS ORDERED: DIGOXIN 0.125 MG TAB PO SCH (10:00)
== END 2021-01-18 15:25 | disposition home or self-care (01) | DRG 308 ==
LOC: EDUNIT# 16:51 → ER 16:51 → TELE 19:29 → TELE-EAST 01-16 12:40
PROVIDERS: ADMIT Nurse Practitioner Acute Care; ATTEND Family Medicine
PROC: 30233N1 Transfusion of Nonautologous Red Blood Cells into Peripheral Vein, Percutaneous Approach (ICD-10-PCS; principal; 2021-01-16)
DX: I48.91 Unspecified atrial fibrillation (principal); I50.23 Acute on chronic systolic (congestive) heart failure; C91.10 Chronic lymphocytic leukemia of B-cell type not having achieved remission; D61.818 Other pancytopenia; C95.90 Leukemia, unspecified not having achieved remission; I11.0 Hypertensive heart disease with heart failure; Z20.822 Contact with and (suspected) exposure to COVID-19; D69.6 Thrombocytopenia, unspecified; D53.9 Nutritional anemia, unspecified; F15.10 Other stimulant abuse, uncomplicated; J44.9 Chronic obstructive pulmonary disease, unspecified; Z79.899 Other long term (current) drug therapy; Z79.891 Long term (current) use of opiate analgesic; Z79.01 Long term (current) use of anticoagulants; Z82.49 Family history of ischemic heart disease and other diseases of the circulatory system; Z91.19 Patient's noncompliance with other medical treatment and regimen; I27.21 Secondary pulmonary arterial hypertension
CPT/HCPCS: 36415; 71045; 80048; 80053; 80307; 82607; 82728; 82746; 83010; 83540; 83550; 83615; 83735; 83880; 84484; 85007; 85014; 85018; 85027; 85045; 86141; 86850; 86880; 86900; 86901; 86902; 86922; 87426; 93005; 96374; 96375; 99291; G0378; J2405

== ENCOUNTER 2021-02-13 20:36 | Inpatient (IN) | payer MEDICARE ==
[~2021-02-13] VITALS: Ht 170.2 cm; Wt 72.6 kg
[2021-02-13] MEDS ORDERED: IPRATROPIUM BROM 0.5 MG/2.5ML INH SOL ONE (20:45)
[2021-02-13] MEDS ORDERED: ALBUTEROL SULF 2.5 MG/0.5ML(0.5%) NEB SOLN ONE (20:45)
[2021-02-13] MEDS ORDERED: LORazepam 2MG/ML-1ML VIAL IV ONE ×3 (20:45→21:45)
[2021-02-13] MEDS ORDERED: LORazepam 2MG/ML-1ML VIAL ONE (20:47)
[2021-02-13] MEDS ORDERED: methylPREDNISolone SOD SUCC 125 MG/2 ML VL IV ONE (21:00)
[2021-02-13 21:17] LABS: Hematocrit 41.6 % (41.0-53.0); Hemoglobin 13.9 g/dL (13.5-17.5); Mean Corpuscular Hemoglobin 31.4 pg (28.0-32.0); Mean Corpuscular Hgb Conc. 33.4 g/dL (32.0-36.0); Red Blood Cells 4.43 10^6/uL (4.5-5.90); White Blood Cell 4.6 10^3/uL (4.4-10.8)
[2021-02-13 21:21] LABS: Band Neutrophils % (manual) 0; Basophils % (manual) 0 (0.0-2.0); Blast Cells 0; Eosinophils % (manual) 0 (0-7); Metamyelocytes % 0; Myelocytes % 0; Promyelocytes % 0
[2021-02-13 21:34] LABS: Albumin 3.1 g/dL (3.4-5.0); Calcium 8.3 mg/dL (8.5-10.1); Magnesium 1.5 mg/dL (1.6-2.6); Potassium 4.4 mmol/L (3.5-5.1)
[2021-02-13 21:40] LABS: BUN/Creatinine Ratio 15.8; Bilirubin, Total 3.2 mg/dL (0.2-1.0); Total Protein 7.6 g/dL (6.4-8.2)
[2021-02-13 21:42] LABS: Lymphocytes % (manual) 79 (10.0-50.0); Monocytes % (manual) 4 (0-12); Reactive Lymphocytes 5
[2021-02-13 21:43] LABS: Lactic Acid w/Reflex 6.4 mmol/L (0.4-2.0)
[2021-02-13] MEDS ORDERED: cefTRIAXone 1GM/50ML D5W 50 ML IV ONE (21:45)
[2021-02-13] MEDS ORDERED: ALBUTEROL SULF 2.5 MG/0.5ML(0.5%) NEB SOLN NEB ONE (21:45)
[2021-02-13] MEDS ORDERED: AZITHROMYCIN 500MG/ 250ML 250 ML IV ONE (21:45)
[2021-02-13] MEDS ORDERED: IPRATROPIUM BROM 0.5 MG/2.5ML INH SOL NEB ONE (21:45)
[2021-02-13] MEDS ORDERED: dilTIAZem 25 MG/5 ML VIAL IV ONE (22:00)
[2021-02-13] MEDS ORDERED: ETOMIDATE (2MG/ML) 20ML VIAL IV ONE ×2 (22:11→22:15)
[2021-02-13] MEDS ORDERED: SUCCINYLCHOLINE CHLORIDE 20 MG/ML 10ML VIAL IV ONE ×2 (22:12→22:15)
[2021-02-13] MEDS ORDERED: PROPOFOL 100 ML IV ONE (22:24)
[2021-02-13] MEDS ORDERED: PROPOFOL 100 ML IV SCH ×2 (22:30→23:15)
[2021-02-13] MEDS ORDERED: fentaNYL CITRATE 100 MCG/2 ML VL IV ONE (22:45)
[2021-02-13] MEDS ORDERED: NOREPINEPHRINE 8 MG/250ML KIT 250 ML IV ONE (23:14)
[2021-02-13] MEDS ORDERED: SODIUM CHLORIDE 0.9% 1,000 ML IV SCH (23:15)
[2021-02-13] MEDS ORDERED: ONDANSETRON HCL 4 MG/2 ML VIAL IV PRN (23:15)
[2021-02-13] MEDS ORDERED: NOREPINEPHRINE 8 MG/250ML KIT 250 ML IV SCH (23:15)
[2021-02-13] MEDS ORDERED: DexAMETHasone SOD PHOS 10MG/1ML VIAL INJ IV ONE (23:15)
[2021-02-13] MEDS ORDERED: ACETAMINOPHEN 325 MG TAB PO PRN (23:15)
[2021-02-13] MEDS ORDERED: NITROGLYCERIN 0.4 MG SL TAB SL PRN (23:15)
[2021-02-13] MEDS ORDERED: MORPHINE SULFATE INJECTION 2 MG/ML SYRG IV PRN (23:15)
[2021-02-13 23:16] LABS: INR 1.72 (0.9-1.15)
[2021-02-13 23:30] VITALS: BP 116/70
[2021-02-13] MEDS ORDERED: ACETAMINOPHEN 325 MG RECT SUPP PR ONE ×2 (23:33→23:45)
[2021-02-14] VITALS (8 sets, daily range): BP systolic 49–114; BP diastolic 30–59
[2021-02-14] MEDS: ALBUTEROL SULF 2.5 MG/0.5ML(0.5%) NEB SOLN NEB SCH ×2 (00:21→06:24)
[2021-02-14] MEDS ORDERED: VANCOMYCIN 1GM/250ML 250 ML IV ONE (00:30)
[2021-02-14] MEDS ORDERED: MIDAZOLAM DRIP 50 mg/50mL 50 ML IV SCH (01:45)
[2021-02-14] MEDS ORDERED: fentaNYL Drip 2500mCg/250mlNS 250 ML IV SCH (01:45)
[2021-02-14] MEDS ORDERED: VASOPRESSIN 50 UNITS in D5W 5% 247.5 ML IV SCH (02:45)
[2021-02-14] MEDS ORDERED: ALBUMIN 5% 250 ML IV ONE ×2 (02:45→02:47)
[2021-02-14] MEDS ORDERED: VASOPRESSIN 20 UNIT/ML ONE (02:53)
[2021-02-14] MEDS ORDERED: SODIUM BICARBONATE 8.4 % INJ 50ML VIAL IV ONE ×5 (03:00→07:02)
[2021-02-14] MEDS ORDERED: DEXTROSE 50% SYRINGE 50 ML IV ONE (03:21)
[2021-02-14] MEDS ORDERED: IBUPROFEN 800 MG TAB PO ONE (03:30)
[2021-02-14] MEDS ORDERED: SODIUM CHLORIDE 0.9% 500 ML IV ONE (03:45)
[2021-02-14] MEDS: PIPERACILLIN-TAZOB 2.25GM 50 ML IV SCH ×2 (03:55→12:00)
[2021-02-14] MEDS ORDERED: SODIUM BICARBONATE 50ML VIAL 100 ML in SOD CHL 0.45% 1,000 ML IV ONE (04:30)
[2021-02-14] MEDS ORDERED: IPRATROPIUM BROM 0.5 MG/2.5ML INH SOL NEB SCH (06:00)
[2021-02-14] MEDS ORDERED: FUROSEMIDE 20 MG/2 ML VIAL IV SCH (06:00)
[2021-02-14] MEDS ORDERED: PHENYLEPHRINE IV 250 ML IV ONE (06:30)
[2021-02-14 07:02] LABS: Hemoglobin 11.3 g/dL (13.5-17.5)
[2021-02-14] MEDS ORDERED: SODIUM BICARBONATE 8.4% INJ 50ML SYRINGE ONE (07:03)
[2021-02-14 07:04] LABS: Hematocrit 35.7 % (41.0-53.0); Mean Corpuscular Hemoglobin 31.7 pg (28.0-32.0); Mean Corpuscular Hgb Conc. 31.8 g/dL (32.0-36.0); Mean Corpuscular Volume 99.9 fL (80.0-100.0); Red Blood Cells 3.57 10^6/uL (4.5-5.90)
[2021-02-14 07:08] LABS: Red Cell Distribution Width 26.2 % (11.8-14.3)
[2021-02-14] MEDS ORDERED: EPINEPHrine HCL 250 ML IV ONE (07:10)
[2021-02-14 07:11] LABS: Basophils % (manual) 0 (0.0-2.0); Blast Cells 0; Eosinophils % (manual) 0 (0-7); Promyelocytes % 0
[2021-02-14 07:14] LABS: Calcium 6.9 mg/dL (8.5-10.1)
[2021-02-14] MEDS ORDERED: SODIUM BICARBONATE 50ML VIAL 150 ML in SOD CHL 0.45% 1,000 ML IV SCH (07:15)
[2021-02-14] MEDS ORDERED: EPINEPHrine HCL 250 ML IV SCH (07:15)
[2021-02-14 07:22] LABS: Albumin 2.5 g/dL (3.4-5.0); BUN/Creatinine Ratio 13.5; Total Protein 5.8 g/dL (6.4-8.2)
[2021-02-14 07:31] LABS: Potassium 5.8 mmol/L (3.5-5.1)
[2021-02-14] MEDS ORDERED: CALCIUM GLUC 1,000mg/50ml-NS 50 ML IV ONE ×2 (07:41→07:45)
[2021-02-14] MEDS: PHENYLEPHRINE IV 250 ML IV SCH ×2 (07:45→11:10)
[2021-02-14] MEDS ORDERED: DEXTROSE 50% SYRINGE 100 ML IV ONE (07:53)
[2021-02-14 08:02] LABS: Lymphocytes % (manual) 74 (10.0-50.0); Myelocytes % 1
[2021-02-14 08:03] LABS: Band Neutrophils % (manual) 10; Metamyelocytes % 1; Monocytes % (manual) 7 (0-12); Reactive Lymphocytes 2
[2021-02-14] MEDS ORDERED: DOPamine 1600MCG/ML D5W 250 ML IV ONE (09:35)
[2021-02-14] MEDS ORDERED: ASPirin 81 mg TAB PO SCH (10:00)
[2021-02-14] MEDS ORDERED: DexAMETHasone SOD PHOS 10MG/1ML VIAL INJ IV SCH (10:00)
[2021-02-14] MEDS ORDERED: PANTOPRAZOLE 40 MG/10 ML VIAL INJ IV SCH (10:00)
[2021-02-14] MEDS ORDERED: DEXTROSE (50%) 50ML SYRG IV PRN (10:15)
[2021-02-14] MEDS ORDERED: ACCU-CHEK COMFORT CURVE STRIP VI SCH (10:15)
[2021-02-14] MEDS ORDERED: DOBUTamine 1000MCG/ML 250 ML IV SCH (10:15)
[2021-02-14] MEDS ORDERED: MEROPENEM 1GM IVPB 100 ML IV ONE (10:45)
[2021-02-14] MEDS ORDERED: SODIUM BICARBONATE 50ML VIAL 150 ML in D5W 5% 1,000 ML IV SCH (11:00)
[2021-02-14 11:49] LABS: Calcium 7.8 mg/dL (8.5-10.1); Magnesium 2.7 mg/dL (1.6-2.6)
[2021-02-14 12:24] LABS: Potassium 7.9 mmol/L (3.5-5.1)
[2021-02-14 13:00] LABS: Lactic Acid w/Reflex 22.4 mmol/L (0.4-2.0)
[2021-02-14] MEDS ORDERED: cefTRIAXone 1GM/50ML D5W 50 ML IV SCH (21:00)
[2021-02-14] MEDS ORDERED: ATORVASTATIN 20 MG TAB PO SCH (22:00)
[2021-02-14] MEDS ORDERED: AZITHROMYCIN 500MG/ 250ML 250 ML IV SCH (22:00)
== END 2021-02-14 11:11 | DRG 208 ==
LOC: ER 20:36 → TELE 23:06
PROVIDERS: ADMIT Nurse Practitioner; ATTEND Internal Medicine
PROC: 5A1935Z Respiratory Ventilation, Less than 24 Consecutive Hours (ICD-10-PCS; principal; 2021-02-13)
PROC: 0BH17EZ Insertion of Endotracheal Airway into Trachea, Via Natural or Artificial Opening (ICD-10-PCS; 2021-02-13)
PROC: 5A09357 Assistance with Respiratory Ventilation, Less than 24 Consecutive Hours, Continuous Positive Airway Pressure (ICD-10-PCS; 2021-02-13)
PROC: 06HY33Z Insertion of Infusion Device into Lower Vein, Percutaneous Approach (ICD-10-PCS; 2021-02-13)
PROC: 5A12012 Performance of Cardiac Output, Single, Manual (ICD-10-PCS; 2021-02-13)
PROC: 0DH67UZ Insertion of Feeding Device into Stomach, Via Natural or Artificial Opening (ICD-10-PCS; 2021-02-14)
DX: J96.01 Acute respiratory failure with hypoxia (principal); I50.23 Acute on chronic systolic (congestive) heart failure; I21.A1 Myocardial infarction type 2; J18.9 Pneumonia, unspecified organism; N17.9 Acute kidney failure, unspecified; C91.10 Chronic lymphocytic leukemia of B-cell type not having achieved remission; J44.0 Chronic obstructive pulmonary disease with (acute) lower respiratory infection; Z99.11 Dependence on respirator [ventilator] status; I42.8 Other cardiomyopathies; I11.0 Hypertensive heart disease with heart failure; Z20.822 Contact with and (suspected) exposure to COVID-19; I48.0 Paroxysmal atrial fibrillation; D69.6 Thrombocytopenia, unspecified; F15.10 Other stimulant abuse, uncomplicated; D53.9 Nutritional anemia, unspecified; F17.210 Nicotine dependence, cigarettes, uncomplicated; F12.90 Cannabis use, unspecified, uncomplicated; I08.3 Combined rheumatic disorders of mitral, aortic and tricuspid valves; R00.1 Bradycardia, unspecified; E11.9 Type 2 diabetes mellitus without complications; I27.21 Secondary pulmonary arterial hypertension; R57.0 Cardiogenic shock; D63.8 Anemia in other chronic diseases classified elsewhere; I46.9 Cardiac arrest, cause unspecified; E87.5 Hyperkalemia; I70.0 Atherosclerosis of aorta; Z91.14 Patient's other noncompliance with medication regimen; Z79.84 Long term (current) use of oral hypoglycemic drugs; Z79.899 Other long term (current) drug therapy
CPT/HCPCS: 31500; 36415; 36556; 36600; 71045; 76856; 80048; 80053; 82728; 82805; 82962; 83605; 83615; 83735; 83880; 84484; 85007; 85027; 85049; 85379; 85610; 87040; 87070; 87077; 87186; 87205; 87426; 92950; 93005; 94002; 94003; 94640; 94660; 96365; 96375; 99152; 99153; 99291; C9113; G0378; J0171; J0330; J0696; J2250; J2543; J2704; J7060